=== PATIENT | male | born 1985 | race Hispanic/Latino ===

== ENCOUNTER 2024-04-02 18:02 | Emergency (ER) | payer OTHER ==
[~2024-04-02] VITALS: Ht 180.3 cm; Wt 99.8 kg
[2024-04-02 18:20] VITALS: BP 124/107; PULSE 109; RESP 20; TEMP 98.6
--- NOTE | 2024-04-02 18:25 | ERN ---
ED Note History of Present Illness Stated Complaint: VOMITING BLOOD X 2 WEEKS Chief Complaint: Hematemesis/Vomiting Blood Time Seen by MD: 18:14 Dictation: PATIENT IS A 38-YEAR-OLD MALE STATES HE HAS BEEN HAVING INTERMITTENT VOMITING WITH BLOOD-TINGED EMESIS FOR TWO WEEKS. NO FEVER NO CHILLS NO NAUSEA VOMITING NO PAIN AT THIS TIME. PATIENT STATES HE DOES DRINK ON A DAILY BASIS USE THE SIX PACK OR MORE AND HE HAS BEEN DOING IT SINCE HE WAS18 YEARS OLD. 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 Past Medical History Social History: ETOH RN Note Reviewed/Agreed w/PFSH: Yes Review of System Dictation CONSTITUTIONAL: NEGATIVE EXCEPT FOR HPI HEAD/FACE: NEGATIVE EXCEPT FOR HPI EENT: NEGATIVE EXCEPT FOR HPI RESPIRATORY: NEGATIVE EXCEPT FOR HPI GASTROINTESTINAL/ABDOMINAL: NEGATIVE EXCEPT FOR HPI HEMATEMESIS GENITOURINARY: NEGATIVE EXCEPT FOR HPI MUSCULOSKELETAL: NEGATIVE EXCEPT FOR HPI INTEGUMENTARY: NEGATIVE EXCEPT FOR HPI NEUROLOGICAL/PSYCH: NEGATIVE EXCEPT FOR HPI HEMATOLOGIC/LYMPHATIC: NEGATIVE EXCEPT FOR HPI ALL SYSTEMS NEGATIVE, EXCEPT NOTED ABOVE. 13 POINT REVIEW OF SYSTEMS ASSESSED AND ALL NEGATIVE EXCEPT FOR ABOVE. Physical Exam Dictation VITAL SIGNS REVIEWED GENERAL APPEARANCE: ALERT, ORIENTED X 3, NO ACUTE DISTRESS, WELL DEVELOPED, NOURISHED. HEAD AND FACE: NON-TRAUMATIC. EYES: PERRL, PINK CONJUNCTIVAS, EYELID NO TRAUMA, ANTERIOR CHAMBER WITH ARCUS SENILIS. EARS: PINNAS INTACT AND NO SIGNS OF TRAUMA OR ERYTHEMA EAR CANALS CLEAR AND NO DISCHARGE TM NO ERYTHEMA NOSE: NO DISCHARGE, NO BLEEDING. OROPHARYNX: MOUTH NORMAL, TONGUE PINK, PHARYNX CLEAR,NO ERYTHEMA, TONSILS NO EXUDATES, NO ABSCESSES NOTED, MUCOUS MEMBRANE MOIST NECK: SUPPLE, NON-TENDER, NO THYROMEGALY, NO MASSES, NO JVD, NO BRUITS BREAST:DEFERRED CHEST:NO TENDERNESS, NO CREPITUS, NO PARADOXICAL MOVEMENT, NO RETRACTIONS LUNGS:CLEAR, WELL-VENTILATED, SYMMETRIC, NO RALES, NO WHEEZING, NO RHONCHI, NO STRIDOR, GOOD BREATH SOUNDS BILATERALLY HEART: TACHYCARDIC, NO MURMUR, NO GALLOPS VASCULAR: NO PERIPHERAL EDEMA, ABDOMEN: SOFT, POSITIVE BOWEL SOUNDS, NONDISTENDED, NO GUARDING, NONTENDER, NO REBOUND, NO MASSES NO HEPATOMEGALY, NO SPLENOMEGALY, NO EASTMAN'S SIGN, NO HERNIAS. NO PAIN RECTAL: DEFERRED GENITAL: DEFERRED NEUROLOGICAL: NORMAL SPEECH, MOTOR FUNCTION INTACT, SENSORY FUNCTION INTACT MUSCULOSKELETAL: NECK NONTENDER, FULL RANGE OF MOTION, BACK NONTENDER, FULL RANGE OF MOTION, EXTREMITIES: NONTENDER, FULL RANGE OF MOTION SKIN: COLOR PINK, DRY, NO TURGOR, NO RASH, NO LACERATIONS, NO ABRASIONS, NO CONTUSIONS. LYMPHATIC: DEFERRED Results (Laboratory/Radiology) Labs Reviewed?: Yes ED Course ED Course Orders Procedure Category Date Status Time Type And Screen BBK 04/02/24 Logged 18:20 Cbc With Differential LAB 04/02/24 Logged 18:20 Urinalysis Profile LAB 04/02/24 Logged 18:20 Occult Blood Stool LAB 04/02/24 Logged Single Only 18:20 0.9%Nacl 1000ml (Ns PHA 04/02/24 In Process 1000ml) 18:30 Pantoprazole 40mg Inj PHA 04/02/24 In Process (Protonix 40mg Inj 18:30 Lipase LAB 04/02/24 Logged 18:20 Basic Metabolic Panel LAB 04/02/24 Logged 18:20 12 Lead Ekg Tracing- EKG 04/02/24 Logged Technical 18:20 DX & DISP Departure Condition: Stable AJ CRABTREE NP Apr 02, 2024 18:25
[2024-04-02] MEDS ORDERED: PANTOPrazole 40 MG/VIAL IVP ONE (18:30)
[2024-04-02] MEDS ORDERED: 0.9%NACL 1000ML 1,000 ML IV ONE (18:30)
[2024-04-02 18:39] LABS: BASOPHILS # (AUTO) 0.06 K/uL (0.00-0.20); BASOPHILS % (AUTO) 0.8 % (0.0-5.0); EOSINOPHILS # (AUTO) 0.46 K/uL (0.00-0.70); EOSINOPHILS % (AUTO) 6.3 % (0.0-8.0); HEMATOCRIT 45.2 % (42-54); IMMATURE GRANULOCYTE ABSOLUTE 0.03 K/uL (0-1); LYMPHOCYTES % (AUTO) 26.9 % (21.0-51.0); MEAN CORPUSCULAR HEMOGLOBIN 30.2 pg (27.0-33.0); MEAN CORPUSCULAR HGB CONC 33.6 g/dL (32.0-36.0); MEAN CORPUSCULAR VOLUME 89.7 fL (79-99); MONOCYTES # (AUTO) 0.7 K/uL (0.1-1.0); NEUTROPHILS # (AUTO) 4.1 K/uL (1.8-7.7); NEUTROPHILS % (AUTO) 56.6 % (40.0-77.0); PLATELET COUNT (AUTO) 363 K/uL (130-400); RED BLOOD CELL COUNT(AUTO) 5.04 MIL/uL (4.50-6.20); RED CELL DISTRIBUTION WIDTH 12.3 % (11.0-15.5); WHITE BLOOD COUNT (AUTO) 7.3 K/uL (4.8-10.8)
[2024-04-02 19:00] LABS: CREATININE 0.8 mg/dL (0.5-1.3); POTASSIUM 3.7 mmol/L (3.5-5.1)
--- NOTE | 2024-04-02 19:40 | NUR ---
CALLED BY [facility]. NO ANSWER
--- NOTE | 2024-04-02 20:19 | NUR ---
PT CALLED, NO ANSWER
--- NOTE | 2024-04-02 20:50 | NUR ---
PT CALLED, NO ANSWER
== END 2024-04-02 20:50 | disposition left against medical advice (07) ==
LOC: EDH 18:02
DX: K92.0 Hematemesis (principal)
CPT/HCPCS: 36415; 80048; 83690; 85025; 86850; 86900; 86901; 99283